=== PATIENT | female | born 1935 | race Caucasian/White ===

== ENCOUNTER 2019-12-11 14:30 | Emergency (ER) | payer MEDICARE, BC ==
[2019-12-11] MEDS ORDERED: Ondansetron 4 MG/2 ML SDV IVPUSH ONE (15:04)
[2019-12-11] MEDS ORDERED: Pantoprazole 40 MG in Sodium Chloride 0.9% 20 ML IVPUSH ONE (15:05)
--- NOTE | 2019-12-11 15:12 | EDM.PDOC ---
ED HPI GENERAL MEDICAL PROBLEM - General Chief Complaint: Abdominal Pain Stated Complaint: STOMACH PAIN AND VOMITING Time Seen by Provider: 12/11/19 15:00 Source of Information: Reports: Patient History Limitations: Reports: No Limitations - History of Present Illness INITIAL COMMENTS - FREE TEXT/NARRATIVE: This 84 year old female is admitted to the ED with a chief complaint of upper abdominal pain since yesterday with associated nausea and vomiting coffee ground type emesis. She states that the pain is sharp (5/10) without radiation. She also complains of constipation for the last three days. She denies any urinary symptoms. She denies chest pain or SOB. She denies any other symptoms. She has a history of colon cancer with partial bowel resection 20 years ago. She states that she was treated for a small bowel obstruction in [place] one year ago. Upper abdomen Pain Score (Numeric/FACES): 10 - Related Data Allergies Allergy/AdvReac Type Severity Reaction Status Date / Time codeine Allergy Respiratory Verified 12/11/19 14:46 Distress meperidine [From Demerol] Allergy Respiratory Verified 12/11/19 14:46 Distress Tetracyclines Allergy Respiratory Verified 12/11/19 14:46 Distress Home Meds: Home Meds Levothyroxine 112 mcg PO DAILY 12/11/19 [History] Omeprazole [First-Omeprazole] 1 dose PO DAILY 12/11/19 [History] Ondansetron [Zofran] 4 mg PO Q8H PRN 5 Days #15 tab 12/11/19 [Rx] Pantoprazole Sodium [Protonix] 20 mg PO DAILY 30 Days #30 tablet. 12/11/19 [Rx ] Tetrahydroz/Dext 70/Peg 400/Pv [Eye Drops] 1 drop EYEBOTH ASDIRECTED 12/11/19 [ History] amLODIPine [Norvasc] 5 mg PO DAILY 12/11/19 [History] Past Medical History HEENT History: Reports: None Cardiovascular History: Reports: Hypertension Respiratory History: Reports: None Gastrointestinal History: Reports: None Genitourinary History: Reports: None INTERVENTIONAL RADIOLOGY TECHNOLOGIST History: Reports: None Musculoskeletal History: Reports: None Neurological History: Reports: None Psychiatric History: Reports: None Endocrine/Metabolic History: Reports: None Hematologic History: Reports: None Immunologic History: Reports: None Oncologic (Cancer) History: Reports: Colon, Thyroid, Other (See Below) Other Oncologic History: eye Dermatologic History: Reports: None - Infectious Disease History Infectious Disease History: Reports: Chicken Pox, Measles, Mumps - Past Surgical History Head Surgeries/Procedures: Reports: None HEENT Surgical History: Reports: None Cardiovascular Surgical History: Reports: None Respiratory Surgical History: Reports: None GI Surgical History: Reports: None Female Surgical History: Reports: None Endocrine Surgical History: Reports: None Neurological Surgical History: Reports: None Musculoskeletal Surgical History: Reports: None Oncologic Surgical History: Reports: None Dermatological Surgical History: Reports: None Social & Family History - Family History Family Medical History: Noncontributory - Tobacco Use Smoking Status *Q: Never Smoker Second Hand Smoke Exposure: No - Caffeine Use Caffeine Use: Reports: None - Recreational Drug Use Recreational Drug Use: No ED ROS GENERAL - Review of Systems Review Of Systems: See Below Constitutional: Reports: No Symptoms HEENT: Reports: No Symptoms Respiratory: Reports: No Symptoms Cardiovascular: Reports: No Symptoms Endocrine: Reports: No Symptoms GI/Abdominal: Reports: Abdominal Pain, Constipation (for a few days.), Nausea, Vomiting (coffee grounds) : Reports: No Symptoms Musculoskeletal: Reports: No Symptoms Skin: Reports: No Symptoms Neurological: Reports: No Symptoms ED EXAM, GI/ABD - Physical Exam Exam: See Below Exam Limited By: No Limitations General Appearance: Alert, WD/WN, No Apparent Distress Throat/Mouth: Normal Inspection, Normal Oropharynx Head: Atraumatic, Normocephalic Neck: Normal Inspection, Supple Respiratory/Chest: No Respiratory Distress, Lungs Clear, Normal Breath Sounds, Chest Non-Tender Cardiovascular: Normal Peripheral Pulses, Regular Rate, Rhythm, No Edema, Systolic Murmur (systolic ejection murmur grade 2/6 best heard at the apex.) GI/Abdominal Exam: Normal Bowel Sounds, Soft, No Distention, No Abnormal Bruit, No Mass, Guarding, Tender (Tenderness over the entire upper abdomen.). No: Rigid, Rebound (Female) Exam: Deferred Rectal (Female) Exam: Normal Exam, Normal Rectal Tone, Heme - Stool, Hemorrhoids (very small external hemorrhoids) Back Exam: Normal Inspection Extremities: Normal Inspection, Normal Range of Motion, Normal Capillary Refill Neurological: Alert, Oriented (times 3), CN II-XII Intact, Normal Cognition, Normal Reflexes, No Motor/Sensory Deficits Psychiatric: Normal Affect, Normal Mood Skin Exam: Warm, Dry, Intact, Normal Color, No Rash Lymphatic: No Adenopathy Course - Vital Signs Text/Narrative:: I re-evaluated the patient at 5:30PM. She states that she is feeling much and feels like going home. Her physical exam of the abdomen reveals very little tenderness in the epigastric area. No rebound or guarding. I reviewed her CT of the abdomen and pelvis and I do not see any tamra bowel obstruction. I reviewed all of her lab studies which are unremarkable. I talked to her daughter and over he phone and discussed our plan for discharge and also went over her labs and CT scan. I told them that I will be here tomorrow from 7:00AM to 7:00PM and that if she has any other problems please don't hesitate to come in and see me. They all agreed with the discharge plan. Last Recorded V/S: Last Vital Signs Temp 96.8 F L 12/11/19 14:49 Pulse 99 12/11/19 14:49 Resp 18 12/11/19 14:49 BP 148/92 H 12/11/19 14:49 Pulse Ox 99 12/11/19 14:49 - Orders/Labs/Meds Orders: Active Orders 24 hr Category Date Time Status Sodium Chloride 0.9% [Normal Saline] 500 ml Med 12/11/19 15:15 Active IV .BOLUS Medication Orders Sodium Chloride (Normal Saline) 500 mls @ 500 mls/hr IV .BOLUS MESSI Last Admin: 12/11/19 15:28 Dose: 500 mls/hr Labs: Laboratory Tests 12/11/19 12/11/19 12/11/19 Range/Units 15:20 15:20 16:13 WBC 9.50 (4.0-11.0) K/uL RBC 4.81 (4.30-5.90) M/uL Hgb 15.5 (12.0-16.0) g/dL Hct 45.1 (36.0-46.0) % MCV 93.8 (80.0-98.0) fL MCH 32.2 H (27.0-32.0) pg MCHC 34.4 (31.0-37.0) g/dL RDW Std Deviation 44.9 (28.0-62.0) fl RDW Coeff of Noemi 13 (11.0-15.0) % Plt Count 224 (150-400) K/uL MPV 9.20 (7.40-12.00) fL Neut % (Auto) 84.1 H (48.0-80.0) % Lymph % (Auto) 9.8 L (16.0-40.0) % Gillespie % (Auto) 5.5 (0.0-15.0) % Eos % (Auto) 0.5 (0.0-7.0) % Baso % (Auto) 0.1 (0.0-1.5) % Neut # (Auto) 8.0 H (1.4-5.7) K/uL Lymph # (Auto) 0.9 (0.6-2.4) K/uL Gillespie # (Auto) 0.5 (0.0-0.8) K/uL Eos # (Auto) 0.1 (0.0-0.7) K/uL Baso # (Auto) 0.0 (0.0-0.1) K/uL Nucleated RBC % 0.0 /100WBC Nucleated RBCs # 0 K/uL Sodium 138 (136-145) mmol/L Potassium 3.7 (3.5-5.1) mmol/L Chloride 100 (98-107) mmol/L Carbon Dioxide 26.8 (21.0-32.0) mmol/L BUN 15 (7.0-18.0) mg/dL Creatinine 0.9 (0.6-1.0) mg/dL Est Cr Clr Drug Dosing 40.90 mL/min Estimated GFR (MDRD) 59.8 ml/min Glucose 117 H (74-106) mg/dL Calcium 8.8 (8.5-10.1) mg/dL Magnesium 2.1 (1.8-2.4) mg/dL Total Bilirubin 0.7 (0.2-1.0) mg/dL AST 20 (15-37) IU/L ALT 25 (14-63) IU/L Alkaline Phosphatase 89 (46-116) U/L Total Protein 7.6 (6.4-8.2) g/dL Albumin 3.9 (3.4-5.0) g/dL Globulin 3.7 (2.6-4.0) g/dL Albumin/Globulin Ratio 1.1 (0.9-1.6) Urine Color YELLOW Urine Appearance CLEAR Urine pH 6.0 (5.0-8.0) Ur Specific [place] 1.015 (1.001-1.035) Urine Protein NEGATIVE (NEGATIVE) mg/dL Urine Glucose (UA) NEGATIVE (NEGATIVE) mg/dL Urine Ketones 40 H (NEGATIVE) mg/dL Urine Occult Blood NEGATIVE (NEGATIVE) Urine Nitrite NEGATIVE (NEGATIVE) Urine Bilirubin NEGATIVE (NEGATIVE) Urine Urobilinogen 0.2 (<2.0) EU/dL Ur Leukocyte Esterase NEGATIVE (NEGATIVE) Meds: Medications Generic Name Dose Route Start Last Admin Trade Name Freq PRN Reason Stop Dose Admin Sodium Chloride 500 mls @ 500 mls/hr 12/11/19 15:15 12/11/19 15:28 Normal Saline IV 500 mls/hr .BOLUS MESSI Administration Discontinued Medications Generic Name Dose Route Start Last Admin Trade Name Freq PRN Reason Stop Dose Admin Pantoprazole Sodium 40 mg/ 20 mls @ 420 mls/hr 12/11/19 15:05 12/11/19 15:28 Sodium Chloride IVPUSH 12/11/19 15:07 420 mls/hr ONETIME ONE Administration Iopamidol 100 ml 12/11/19 16:07 12/11/19 16:08 Isovue Multipack-370 (76%) IVPUSH 12/11/19 16:08 100 ml ONETIME ONE Administration Ondansetron HCl 4 mg 12/11/19 15:04 12/11/19 15:29 Zofran IVPUSH 12/11/19 15:05 4 mg ONETIME ONE Administration Departure - Departure Time of Disposition: 17:58 Disposition: Home, Self-Care 01 Condition: Good Clinical Impression: Gastritis Qualifiers: Gastritis type: unspecified gastritis Chronicity: acute Gastritis bleeding: presence of bleeding unspecified Qualified Code(s): K29.00 - Acute gastritis without bleeding Vomiting Qualifiers: Vomiting type: unspecified Vomiting Intractability: non-intractable Nausea presence: with nausea Qualified Code(s): R11.2 - Nausea with vomiting, unspecified - Discharge Information *PRESCRIPTION DRUG MONITORING PROGRAM REVIEWED*: Yes *COPY OF PRESCRIPTION DRUG MONITORING REPORT IN PATIENT YIFAN: Yes Instructions: Gastritis, Adult, [id number], Abdominal Pain, Adult, Easy-to- Read, Nausea and Vomiting, Adult, [id number] Referrals: PCP,None [Primary Care Provider] - Forms: ED Department Discharge Additional Instructions: Take all medications as directed. Follow up with your PCP in the next two to four days. Clear liquids for the next 8 hours and advance your diet as tolerated. Rest for the next 24 hours. I will be in the ED from 7:00AM tomorrow until 7:00PM if you would like to see me otherwise, return to the ED if your condition gets worse or should you have any questions or concerns. The following information is given to patients seen in the emergency department who are being discharged to home. This information is to outline your options for follow-up care. We provide all patients seen in our emergency department with a follow-up referral. The need for follow-up, as well as the timing and circumstances, are variable depending upon the specifics of your emergency department visit. If you don't have a primary care physician on staff, we will provide you with a referral. We always advise you to contact your personal physician following an emergency department visit to inform them of the circumstance of the visit and for follow-up with them and/or the need for any referrals to a consulting specialist. The emergency department will also refer you to a specialist when appropriate. This referral assures that you have the opportunity for follow-up care with a specialist. All of these measure are taken in an effort to provide you with optimal care, which includes your follow-up. Under all circumstances we always encourage you to contact your private physician who remains a resource for coordinating your care. When calling for follow-up care, please make the office aware that this follow-up is from your recent emergency room visit. If for any reason you are refused follow-up, please contact the Emergency Department at and asked to speak to the emergency department charge nurse. Sepsis Event Note - Evaluation Sepsis Screening Result: No Definite Risk - Focused Exam Vital Signs: Vital Signs Temp Pulse Resp BP Pulse Ox 12/11/19 14:49 96.8 F L 99 18 148/92 H 99 Date Exam was Performed: 12/11/19 Time Exam was Performed: 17:51 - My Orders Last 24 Hours: My Active Orders 12/11/19 15:15 Sodium Chloride 0.9% [Normal Saline] 500 ml IV .BOLUS - Assessment/Plan Last 24 Hours: My Active Orders 12/11/19 15:15 Sodium Chloride 0.9% [Normal Saline] 500 ml IV .BOLUS
[2019-12-11] MEDS ORDERED: Sodium Chloride 0.9% 500 ML IV SCH (15:15)
[2019-12-11 15:44] LABS: CARBON DIOXIDE,CO2 26.8 mmol/L (21.0-32.0); POTASSIUM,K 3.7 mmol/L (3.5-5.1)
[2019-12-11] MEDS ORDERED: Iopamidol 755 MG/ML 200 ML Multipack Bottle IVPUSH ONE (16:07)
--- NOTE | 2019-12-11 16:37 | CT ---
CT abdomen and pelvis Technique: Multiple axial sections were obtained from above the dome of the diaphragm inferiorly through the pubic symphysis. Intravenous contrast was utilized. No oral contrast has been given. Comparison: No prior abdominal imaging is available. Findings: Visualized lung bases sows a minimal subpleural nodule measuring about 3 mm which is felt to be incidental. Multiple small low density lesions are noted within the liver. Most of these are too small to characterize by Hounsfield unit measurements but most likely represent cysts. Dominant finding within the right lobe has Hounsfield unit measurements of a cyst and measures 2.1 cm in size. Spleen appears within normal limits. Small hiatal hernia seen. Adrenal glands show no nodule. Pancreas shows no discrete abnormality. Kidneys show symmetric contrast enhancement. Lower pole of the right kidney and upper pole of the right kidney show small low density findings measuring less than 1 cm believed to represent cysts. Larger cyst is noted within the left kidney measuring 4.1 cm. Aorta shows atherosclerotic change without aneurysm. No retroperitoneal adenopathy is appreciated. Mildly dilated fluid-filled loops of small bowel are seen involving jejunum and proximal ileum. More distal portions of the ileum show diffuse bowel wall thickening which is seen into the terminal ileum. Appendix not visualized with certainty. No free fluid or inflammatory change. Surgical anastomotic sutures are noted at the rectosigmoid junction. Bone window settings were reviewed which show scattered degenerative change within the spine and within both hips. No acute osseous finding is appreciated. Impression: 1. Fluid-filled and mildly dilated bowel within jejunum and proximal ileum. Other portions of the ileum show bowel wall thickening. Findings within the mid and distal ileum are likely due to enteritis. More proximal dilated small bowel may relate to functional obstruction due to this enteritis. 2. Other findings as noted above believed to be incidental. Diagnostic code #3 This report was dictated in MDT
== END 2019-12-11 18:19 | disposition home or self-care (01) ==
LOC: MW.ED 14:30
DX: K29.00 Acute gastritis without bleeding (principal); I10 Essential (primary) hypertension; Z88.5 Allergy status to narcotic agent; Z88.1 Allergy status to other antibiotic agents; Z79.899 Other long term (current) drug therapy
CPT/HCPCS: 36415; 74177; 80053; 81003; 83735; 85025; 93005; 96361; 96374; 96375; 99284; C9113; J2405; J7040; Q9967; 99283

== ENCOUNTER 2021-01-27 23:22 | Emergency (ER) | payer MEDICARE, BC | END 2021-01-27 23:46 | disposition left against medical advice (07) | LOC: MW.ED 23:22 | DX: I10 Essential (primary) hypertension (principal); Z53.21 Procedure and treatment not carried out due to patient leaving prior to being seen by health care provider ==

== ENCOUNTER 2021-03-22 19:59 | Emergency (ER) | payer MEDICARE, BC ==
[2021-03-22] MEDS ORDERED: Sodium Chloride 0.9% 10 ML Syringe FLUSH PRN (20:15)
[2021-03-22] MEDS ORDERED: Sodium Chloride 0.9% 2.5 ML Syringe FLUSH PRN (20:15)
[2021-03-22] MEDS ORDERED: Ondansetron 4 MG/2 ML SDV IVPUSH ONE ×2 (20:39→21:41)
[2021-03-22] MEDS ORDERED: Sodium Chloride 0.9% 1,000 ML IV ONE (20:39)
--- NOTE | 2021-03-22 20:57 | EDM.PDOC ---
<Yahir Reilly - Last Filed: 03/23/21 06:00> ED HPI GENERAL MEDICAL PROBLEM - General Chief Complaint: Gastrointestinal Problem Stated Complaint: NOT FEELING WELL Time Seen by Provider: 03/22/21 20:04 - History of Present Illness INITIAL COMMENTS - FREE TEXT/NARRATIVE: Patient was signed out to me by Alley Garcia pending labs and imaging at 10 PM I did reevaluate the patient and patient continued to remain stable without any issues. Laboratory analysis was unremarkable. The radiological images were viewed by myself along with reading the report from the radiologist. CT head without contrast does not reveal any acute intracranial normality. CT abdomen pelvis with contrast does not reveal any acute findings. 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 I did discuss the results with the patient. At this time the patient reported that she was feeling better. I encouraged the patient to follow-up with her primary care physician regarding the CT findings. She is to return for any new or worsening symptoms. She was amenable discharge at this time and had no further questions DISPOSITION: The patient was discharged home in stable condition. The patient will follow up with primary care physician in 1 to 3 days CONDITION: Fair PROCEDURES: None FINAL IMPRESSION(S)/DIAGNOSES: 1. Acute epigastric abdominal pain 2. Acute viral syndrome Yahir Reilly M.D. - Related Data Allergies Allergy/AdvReac Type Severity Reaction Status Date / Time codeine Allergy Respiratory Verified 03/22/21 20:15 Distress meperidine [From Demerol] Allergy Respiratory Verified 03/22/21 20:15 Distress Tetracyclines Allergy Respiratory Verified 03/22/21 20:15 Distress Home Meds: Home Meds Levothyroxine 112 mcg PO DAILY 12/11/19 [History] Omeprazole [First-Omeprazole] 1 dose PO DAILY 12/11/19 [History] Ondansetron [Zofran] 4 mg PO Q8H PRN 5 Days #15 tab 12/11/19 [Rx] Pantoprazole Sodium [Protonix] 20 mg PO DAILY 30 Days #30 tablet. 12/11/19 [Rx] Tetrahydroz/Dext 70/Peg 400/Pv [Eye Drops] 1 drop EYEBOTH ASDIRECTED 12/11/19 [History] amLODIPine [Norvasc] 5 mg PO DAILY 12/11/19 [History] ED ROS GENERAL - Review of Systems Review Of Systems: See Below ED EXAM, GENERAL - Physical Exam Exam: See Below Departure - Departure Time of Disposition: 23:03 Disposition: Home, Self-Care 01 Condition: Fair Clinical Impression: Viral URI - Discharge Information *PRESCRIPTION DRUG MONITORING PROGRAM REVIEWED*: No *COPY OF PRESCRIPTION DRUG MONITORING REPORT IN PATIENT YIFAN: No Instructions: Viral Respiratory Infection, [id number] Referrals: Danielle Marc DO [Primary Care Provider] - Forms: ED Department Discharge Additional Instructions: Your evaluated today on an emergent basis. At this time your Covid, flu, RSV were negative. All of your labs were normal. In addition we did get a CT of your abdomen and pelvis which did reveal the hepatic cysts that we had discussed. There is also a small hiatal hernia which you do know about it. In addition there is a left adnexal cystic lesion which is likely an ovary measuring 3.3 cm which is unchanged from prior CTs. You also have a cyst on the left kidney which is increased in size from last time however this appears to be similar to your prior CTs. In addition you did have some inflammation on your mesentery which is part of your intestine which is unchanged from prior CT. I do recommend that you follow-up with your primary care physician regarding all of these findings. If you have any worsening symptoms please return to the emergency department. [facility] [address] [place] [address] [place] [address] The patient is informed of any results of their evaluation and diagnostic workup and all questions are answered. They are given discharge instructions and return precautions. The patient is stable for discharge. The patient states they understand and agree with the plan and that they will return if their symptoms get worse or if they have any new concerns. The following information is given to patients seen in the emergency department who are being discharged to home. This information is to outline your options for follow-up care. We provide all patients seen in our emergency department with a follow-up referral. The need for follow-up, as well as the timing and circumstances, are variable depending upon the specifics of your emergency department visit. If you don't have a primary care physician on staff, we will provide you with a referral. We always advise you to contact your personal physician following an emergency department visit to inform them of the circumstance of the visit and for follow-up with them and/or the need for any referrals to a consulting specialist. The emergency department will also refer you to a specialist when appropriate. This referral assures that you have the opportunity for follow-up care with a specialist. All of these measure are taken in an effort to provide you with optimal care, which includes your follow-up. Under all circumstances we always encourage you to contact your private physician who remains a resource for coordinating your care. When calling for follow-up care, please make the office aware that this follow-up is from your recent emergency room visit. If for any reason you are refused follow-up, please contact the [facility] Emergency Department at and asked to speak to the emergency department charge nurse. <Babak Garica E - Last Filed: 03/26/21 11:22> ED HPI GENERAL MEDICAL PROBLEM - General Source of Information: Reports: Patient History Limitations: Reports: No Limitations - History of Present Illness INITIAL COMMENTS - FREE TEXT/NARRATIVE: HISTORY AND PHYSICAL: History of present illness: Patient is an 85-year-old female who presents to the emergency room with complaints of body aches, dizziness and epigastric/mid abdominal pain with nausea and vomiting. She states 2 days ago she had generalized body aches and had felt dizzy with ambulation. Stating "everything just hurts". She noticed she was having a difficult time formulating her speech but was able to talk without difficulty it just took "me longer than usual". She states the symptoms improved and she is no longer having any difficulty with speech but continues to have generalized body aches. During that time of speech difficulty she never had any weakness, deficits, slurring of speech, headache or any other neurological deficits. This afternoon she started to have epigastric pain, nausea and vomiting. She states "I am pretty sure I have the flu or something". She has not had any exposure to sick contacts. No recent travel. She states that she received the [place] COVID vaccination. Patient denies any fever, chills, headache, change in vision, syncope or near syncope. Denies any chest pain, back pain, shortness of breath or cough. Denies any diarrhea, constipation or dysuria. Has not noted any blood in urine or stool. Prior to this afternoon patient had been eating and drinking appropriately. Review of systems: As per history of present illness and below otherwise all systems reviewed and negative. Past medical history: As per history of present illness and as reviewed below otherwise noncontributory. Surgical history: As per history of present illness and as reviewed below otherwise noncontributory. Social history: See social history for further information Family history: As per history of present illness and as reviewed below otherwise noncontributory. Physical exam: General: Well developed and well nourished 85-year-old female. Alert and orientated x 3. Nontoxic in appearance and in no acute distress. Vital signs are stable and have been reviewed by me. Nursing notes were reviewed. Accompanied by and daughter who are attentive to child's needs. HEENT: Atraumatic, normocephalic, pupils equal and reactive bilaterally, negative for conjunctival pallor or scleral icterus, mucous membranes moist, TMs normal bilaterally, throat clear, neck supple, nontender, trachea midline. No drooling or trismus noted. No meningeal signs. No hot potato voice noted. Lungs: Clear to auscultation bilaterally. No wheezes, rales, or rhonchi. Chest nontender. Normal work of breathing, no accessory muscles used. Heart: S1S2, regular rate and rhythm without overt murmur, gallops, or rubs. No JVD. No peripheral edema Abdomen: Soft, nondistended, mild epigastric tenderness. Normoactive bowel sounds. Negative for masses or costovertebral tenderness. Skin: Intact, warm, dry. No lesions or rashes noted. Hematologic: No petechiae or purpra. Mucosa appropriate color and normal nail bed color and refill. Extremities: Atraumatic, moves all extremities per self without difficulty or deficits, negative for cords or calf pain. Neurovascular unremarkable. Neuro: Awake, alert, oriented. Cranial nerves II through XII unremarkable. Cerebellum unremarkable. Motor and sensory unremarkable throughout. Exam nonfocal. Psychiatric: Mood and affect are appropriate. Normal thought process. Answering questions appropriately. Notes: *This patient was seen and evaluated during the 2019 SARS-CoV-2 novel coronavirus pandemic period. Community viral transmission is ongoing at time of this encounter and the emergency department is operating under pandemic response procedures. Patient is an 85-year-old female who presents to the emergency room with concerns of the flu. She states 2 days ago she started to have significant body aches throughout and had noticed approximately 24 hours of feeling like she could not get her words out. She states she was able to think clearly but felt it took longer than usual for her to speak. Family did not notice any facial drooping or change in behavior. Patient states she has not had any generalized weakness, one-sided weakness, neurological deficits, urinary or fecal incontinence, or paresthesias. Symptoms have since resolved but she continues to have body aches. Patient states she decided to come to the emergency room as she had mid/epigastric pain with nausea and vomiting. During the ER interview process she states she feels like she has the flu. We did discuss diagnostics and patient initially was adamant against a head CT, but was talked into it by her family members. She is agreeable to lab work and COVID/influenza testing. States she did have the Pfizer to dose COVID-19 vaccine. No family members that are close to her have been recently ill. My physical exam is unremarkable with the exception of some mild epigastric tenderness. She is neurologically intact. GCS 15, NIH 0. 2200: Patient signed out to Dr Reilly and will disposition patient appropriately. Diagnostics: CBC, CMP, Troponin, EKG, CXR, Head CT, abd/pelvis, Therapeutics: IV fluids, Zofran Definitive disposition and diagnosis as appropriate pending reevaluation and review of above. Abdomen Pain Score (Numeric/FACES): 8 Past Medical History HEENT History: Reports: None Cardiovascular History: Reports: Hypertension Respiratory History: Reports: None Gastrointestinal History: Reports: None Genitourinary History: Reports: None [employer] History: Reports: None Musculoskeletal History: Reports: None Neurological History: Reports: None Psychiatric History: Reports: None Endocrine/Metabolic History: Reports: None Hematologic History: Reports: None Immunologic History: Reports: None Oncologic (Cancer) History: Reports: Colon, Thyroid, Other (See Below) Other Oncologic History: eye Dermatologic History: Reports: None - Infectious Disease History Infectious Disease History: Reports: Chicken Pox, Measles, Mumps - Past Surgical History Head Surgeries/Procedures: Reports: None HEENT Surgical History: Reports: None Cardiovascular Surgical History: Reports: None Respiratory Surgical History: Reports: None GI Surgical History: Reports: None Female Surgical History: Reports: None Endocrine Surgical History: Reports: None Neurological Surgical History: Reports: None Musculoskeletal Surgical History: Reports: None Oncologic Surgical History: Reports: None Dermatological Surgical History: Reports: None Social & Family History - Family History Family Medical History: No Pertinent Family History - Caffeine Use Caffeine Use: Reports: None Course - Vital Signs Last Recorded V/S: Last Vital Signs Temp 99 F 03/22/21 20:15 Pulse 94 03/22/21 20:15 Resp 18 03/22/21 20:15 BP 146/66 H 03/22/21 20:15 Pulse Ox 96 03/22/21 20:15 - Orders/Labs/Meds Labs: Laboratory Tests 03/22/21 03/22/21 03/22/21 Range/Units 20:18 20:18 20:18 WBC 6.43 (4.0-11.0) K/uL RBC 4.50 (4.30-5.90) M/uL Hgb 14.5 (12.0-16.0) g/dL Hct 41.6 (36.0-46.0) % MCV 92.4 (80.0-98.0) fL MCH 32.2 H (27.0-32.0) pg MCHC 34.9 (31.0-37.0) g/dL RDW Std Deviation 45.1 (28.0-62.0) fl RDW Coeff of Noemi 13 (11.0-15.0) % Plt Count 202 (150-400) K/uL MPV 8.90 (7.40-12.00) fL Neut % (Auto) 77.7 (48.0-80.0) % Lymph % (Auto) 14.0 L (16.0-40.0) % [place] % (Auto) 7.0 (0.0-15.0) % Eos % (Auto) 1.1 (0.0-7.0) % Baso % (Auto) 0.2 (0.0-1.5) % Neut # (Auto) 5.0 (1.4-5.7) K/uL Lymph # (Auto) 0.9 (0.6-2.4) K/uL [place] # (Auto) 0.5 (0.0-0.8) K/uL Eos # (Auto) 0.1 (0.0-0.7) K/uL Baso # (Auto) 0.0 (0.0-0.1) K/uL Nucleated RBC % 0.0 /100WBC Nucleated RBCs # 0 K/uL Sodium 137 (136-145) mmol/L Potassium 4.2 (3.5-5.1) mmol/L Chloride 103 (98-107) mmol/L Carbon Dioxide 26.8 (21.0-32.0) mmol/L BUN 14 (7.0-18.0) mg/dL Creatinine 0.9 (0.6-1.0) mg/dL Est Cr Clr Drug Dosing 41.87 mL/min Estimated GFR (MDRD) 59.7 ml/min Glucose 113 H (74-106) mg/dL Lactic Acid (0.4-2.0) mmol/L Calcium 8.6 (8.5-10.1) mg/dL Magnesium 2.0 (1.8-2.4) mg/dL Total Bilirubin 0.4 (0.2-1.0) mg/dL AST 21 (15-37) IU/L ALT 27 (14-63) IU/L Alkaline Phosphatase 96 (46-116) U/L Troponin I < 0.050 (0.000-0.056) ng/mL Total Protein 7.3 (6.4-8.2) g/dL Albumin 3.7 (3.4-5.0) g/dL Globulin 3.6 (2.6-4.0) g/dL Albumin/Globulin Ratio 1.0 (0.9-1.6) Lipase 277 (73-393) U/L TSH, Ultra Sensitive 0.65 (0.36-3.74) uIU/mL Influenza Type A RNA (NEGATIVE) Influenza Type B RNA (NEGATIVE) SARS-CoV-2 RNA ([facility]NA) (NEGATIVE) 03/22/21 03/22/21 Range/Units 20:32 21:06 WBC (4.0-11.0) K/uL RBC (4.30-5.90) M/uL Hgb (12.0-16.0) g/dL Hct (36.0-46.0) % MCV (80.0-98.0) fL MCH (27.0-32.0) pg MCHC (31.0-37.0) g/dL RDW Std Deviation (28.0-62.0) fl RDW Coeff of Noemi (11.0-15.0) % Plt Count (150-400) K/uL MPV (7.40-12.00) fL Neut % (Auto) (48.0-80.0) % Lymph % (Auto) (16.0-40.0) % [place] % (Auto) (0.0-15.0) % Eos % (Auto) (0.0-7.0) % Baso % (Auto) (0.0-1.5) % Neut # (Auto) (1.4-5.7) K/uL Lymph # (Auto) (0.6-2.4) K/uL [place] # (Auto) (0.0-0.8) K/uL Eos # (Auto) (0.0-0.7) K/uL Baso # (Auto) (0.0-0.1) K/uL Nucleated RBC % /100WBC Nucleated RBCs # K/uL Sodium (136-145) mmol/L Potassium (3.5-5.1) mmol/L Chloride (98-107) mmol/L Carbon Dioxide (21.0-32.0) mmol/L BUN (7.0-18.0) mg/dL Creatinine (0.6-1.0) mg/dL Est Cr Clr Drug Dosing mL/min Estimated GFR (MDRD) ml/min Glucose (74-106) mg/dL Lactic Acid 1.9 (0.4-2.0) mmol/L Calcium (8.5-10.1) mg/dL Magnesium (1.8-2.4) mg/dL Total Bilirubin (0.2-1.0) mg/dL AST (15-37) IU/L ALT (14-63) IU/L Alkaline Phosphatase (46-116) U/L Troponin I (0.000-0.056) ng/mL Total Protein (6.4-8.2) g/dL Albumin (3.4-5.0) g/dL Globulin (2.6-4.0) g/dL Albumin/Globulin Ratio (0.9-1.6) Lipase (73-393) U/L TSH, Ultra Sensitive (0.36-3.74) uIU/mL Influenza Type A RNA NEGATIVE (NEGATIVE) Influenza Type B RNA NEGATIVE (NEGATIVE) SARS-CoV-2 RNA ([facility]NA) NEGATIVE (NEGATIVE) Meds: Medications Discontinued Medications Generic Name Dose Route Start Last Admin Trade Name Freq PRN Reason Stop Dose Admin Sodium Chloride 1,000 mls @ 125 mls/hr 03/22/21 20:39 03/22/21 20:44 Normal Saline IV 03/23/21 04:38 125 mls/hr STAT ONE Administration Iopamidol 100 ml 03/22/21 21:22 03/22/21 21:23 Iopamidol 755 Mg/Ml 500 Ml Multipack Bottle IVPUSH 03/22/21 21:23 100 ml ONETIME STA Administration Ondansetron HCl 4 mg 03/22/21 20:39 03/22/21 20:44 Ondansetron 4 Mg/2 Ml Sdv IVPUSH 03/22/21 20:40 4 mg ONETIME ONE Administration Ondansetron HCl 4 mg 03/22/21 21:41 03/22/21 21:49 Ondansetron 4 Mg/2 Ml Sdv IVPUSH 03/22/21 21:42 Not Given ONETIME ONE Sodium Chloride 10 ml 03/22/21 20:15 03/22/21 20:28 Sodium Chloride 0.9% 10 Ml Syringe FLUSH 10 ml ASDIRECTED PRN Administration Keep Vein Open Sodium Chloride 2.5 ml 03/22/21 20:15 03/22/21 20:28 Sodium Chloride 0.9% 2.5 Ml Syringe FLUSH 2.5 ml ASDIRECTED PRN Administration Keep Vein Open Sepsis Event Note (ED) - Evaluation Sepsis Screening Result: No Definite Risk
[2021-03-22 21:00] LABS: BLOOD UREA NITROGEN,BUN 14 mg/dL (7.0-18.0); CARBON DIOXIDE,CO2 26.8 mmol/L (21.0-32.0); CHLORIDE,CL 103 mmol/L (98-107); GLUCOSE RANDOM 113 mg/dL (74-106); POTASSIUM,K 4.2 mmol/L (3.5-5.1); SODIUM,NA 137 mmol/L (136-145)
[2021-03-22] MEDS ORDERED: Iopamidol 755 MG/ML 500 ML Multipack Bottle IVPUSH STA (21:22)
[2021-03-22 21:47] LABS: CORONAVIRUS COVID-19 NAA NEGATIVE (NEGATIVE); INFLUENZA A NAA NEGATIVE (NEGATIVE); INFLUENZA B NAA NEGATIVE (NEGATIVE)
--- NOTE | 2021-03-22 22:41 | CT ---
INDICATION: abdominal pain CT ABDOMEN AND PELVIS WITH CONTRAST TECHNIQUE: Multidetector CT imaging was performed through the abdomen and pelvis following intravenous contrast administration using 100 mL Isovue 370. Coronal and sagittal reconstructions were generated. COMPARISON: 12/11/2019 CT abdomen and pelvis. FINDINGS: Lower chest: Unchanged tiny bibasilar lung nodules. Liver: Unchanged hepatic cysts. Gallbladder and bile ducts: Status post cholecystectomy, as before. No biliary dilation identified. Pancreas: Unremarkable. Spleen: Normal. Adrenals: No nodules or masses. Kidneys, ureters, and urinary bladder: Slight increase in size of 5 centimeter cyst at the upper pole of the left kidney. 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 No hydronephrosis involving either kidney. No bladder mass or definite wall thickening. Gastrointestinal tract and mesentery: Small hiatal hernia. Normal caliber small bowel without obstruction or wall thickening. Appendix not visualized. Postoperative changes of partial resection of the distal colon, as before. Mild hazy density in the central mesenteric fat suggesting mesenteric panniculitis, similar to the prior exam. Vascular structures: Normal caliber abdominal aorta with minimal atherosclerotic changes. Peritoneum: No free air, abscess, or significant free fluid. Lymph nodes: No pathologically enlarged nodes identified. Reproductive organs: Status post hysterectomy, as before. No significant change in 3.3 centimeter left adnexal cystic lesion. Bones: Spinal degenerative changes. Mild bilateral hip DJD. IMPRESSION: 1. No acute abnormality identified. No cause for the patient`s symptoms is demonstrated. 2. Multiple nonacute findings as detailed above. KELLY MORLEY MD [facility] Dictated by Toni Morley MD @ 03/22/2021 10:38:49 PM Please note that all CT scans at this facility use dose modulation, iterative reconstruction, and/or weight-based dosing when appropriate to reduce radiation dose to as low as reasonably achievable. Dictated by: Toni Morley MD @ 03/22/2021 22:40:53 (Electronically Signed)
--- NOTE | 2021-03-22 22:43 | CT ---
INDICATION: dizzy, difficulty with speech (x 1 month) CT HEAD WITHOUT CONTRAST TECHNIQUE: Multiple axial CT images were performed through the head without intravenous contrast administration. COMPARISON: No previous studies are currently available for comparison. FINDINGS: No acute intracranial hemorrhage is identified. No extra-axial collections are evident and there is no mass effect or midline shift. There is mild diffuse age-related brain atrophy. Ventricular size and configuration are within normal limits for the patient`s age. Ruiz-white differentiation is within normal limits. There is very mild patchy hypodensity in the periventricular white matter, a nonspecific finding which most likely reflects chronic small vessel ischemic change. Osseous structures are within normal limits and no fractures are seen. Included portions of the paranasal sinuses and mastoid air cells are normally aerated. IMPRESSION: 1. No acute intracranial abnormality identified. 2. Mild age-related brain atrophy and white matter hypodensity consistent with chronic small vessel ischemic change. KELLY MORLEY MD [facility] Please note that all CT scans at this facility use dose modulation, iterative reconstruction, and/or weight-based dosing when appropriate to reduce radiation dose to as low as reasonably achievable. Dictated by: Toni Morley MD @ 03/22/2021 22:42:11 (Electronically Signed)
--- NOTE | 2021-03-23 03:44 | PCM.EKG ---
#1 Interpretation EKG Date: 03/22/21 Time: 20:48 Rhythm: NSR Rate (Beats/Min): 96 [place]: LAD-Left [place] Deviation P-Wave: Present QRS: Normal ST-T: Normal QT: Normal (Q waves Inferior and lateral leads) Comparison: No Change (12/11/19) EKG Interpretation Comments: Sinus Rhythm
== END 2021-03-22 23:16 | disposition home or self-care (01) ==
LOC: MW.ED 19:59
DX: R10.13 Epigastric pain (principal); B34.9 Viral infection, unspecified; J06.9 Acute upper respiratory infection, unspecified; Z88.5 Allergy status to narcotic agent; Z88.1 Allergy status to other antibiotic agents; Z79.899 Other long term (current) drug therapy; Z20.822 Contact with and (suspected) exposure to COVID-19
CPT/HCPCS: 0240U; 36415; 70450; 74177; 80053; 83605; 83690; 83735; 84443; 84484; 85025; 93005; 96374; 99284; J2405; J7030; Q9967

== ENCOUNTER 2022-03-19 17:04 | Emergency (ER) | payer MEDICARE, BC ==
[2022-03-19 18:06] LABS: CORONAVIRUS COVID-19 NAA NEGATIVE (NEGATIVE); INFLUENZA A NAA NEGATIVE (NEGATIVE); INFLUENZA B NAA NEGATIVE (NEGATIVE)
== END 2022-03-19 19:40 | disposition home or self-care (01) ==
LOC: MW.ED 17:04
DX: S09.90XA Unspecified injury of head, initial encounter (principal); I10 Essential (primary) hypertension; Z88.5 Allergy status to narcotic agent; Z88.8 Allergy status to other drugs, medicaments and biological substances; Z88.1 Allergy status to other antibiotic agents; Z79.899 Other long term (current) drug therapy; Z20.822 Contact with and (suspected) exposure to COVID-19; W22.09XA Striking against other stationary object, initial encounter
CPT/HCPCS: 0240U; 70450; 99284

== ENCOUNTER 2023-01-17 13:02 | Emergency (ER) | payer MEDICARE, BC ==
[2023-01-17] MEDS ORDERED: Sodium Chloride 0.9% 2.5 ML Syringe FLUSH PRN (13:50)
[2023-01-17] MEDS ORDERED: Sodium Chloride 0.9% 10 ML Syringe FLUSH PRN (13:50)
[2023-01-17] MEDS ORDERED: amLODIPine 5 MG Tab PO ONE (13:51)
[2023-01-17] MEDS ORDERED: amLODIPine 2.5 MG Tab PO ONE (13:52)
[2023-01-17 13:54] LABS: BASOPHILS PERCENT AUTO 0.3 % (0.0-1.5); EOSINOPHILS ABSOLUTE AUTO 0.1 K/uL (0.0-0.7); HEMOGLOBIN 13.9 g/dL (12.0-16.0); LYMPHOCYTES PERCENT AUTO 31.3 % (16.0-40.0); MEAN CORPUSCULAR HEMOGLOBIN 31.8 pg (27.0-32.0); MEAN CORPUSCULAR HGB CONC 33.9 g/dL (31.0-37.0); MEAN CORPUSCULAR VOLUME 93.8 fL (80.0-98.0); MONOCYTES ABSOLUTE AUTO 0.6 K/uL (0.0-0.8); NEUTROPHILS ABSOLUTE AUTO 3.7 K/uL (1.4-5.7); NEUTROPHILS PERCENT AUTO 57.4 % (48.0-80.0); NRBC ABSOLUTE 0 K/uL; PLATELET COUNT,PLT 254 K/uL (150-400); RED BLOOD CELL COUNT 4.37 M/uL (4.30-5.90); WHITE BLOOD CELL COUNT,WBC 6.46 K/uL (4.0-11.0)
[2023-01-17 14:09] LABS: ALBUMIN 3.5 g/dL (3.4-5.0); BILIRUBIN TOTAL 0.5 mg/dL (0.2-1.0); CALCIUM 8.7 mg/dL (8.5-10.1); CARBON DIOXIDE,CO2 25.9 mmol/L (21.0-32.0); CREATININE 0.9 mg/dL (0.6-1.0); EST CRCL DRUG DOSING (CG) 40.38 mL/min; POTASSIUM,K 3.8 mmol/L (3.5-5.1); PROTEIN TOTAL,TP 7.1 g/dL (6.4-8.2)
== END 2023-01-17 15:34 | disposition home or self-care (01) ==
LOC: MW.ED 13:02
DX: I10 Essential (primary) hypertension (principal); K21.9 Gastro-esophageal reflux disease without esophagitis; E03.9 Hypothyroidism, unspecified; Z88.5 Allergy status to narcotic agent; Z88.8 Allergy status to other drugs, medicaments and biological substances; Z79.899 Other long term (current) drug therapy
CPT/HCPCS: 36415; 71045; 80053; 83880; 84443; 84484; 85025; 85379; 93005; 99285; A9270; J3490; 93010; 99283

== ENCOUNTER 2023-03-25 23:15 | Emergency (ER) | payer MEDICARE, BC | END 2023-03-26 00:10 | disposition home or self-care (01) | LOC: MW.ED 23:15 | DX: F41.9 Anxiety disorder, unspecified (principal); G47.00 Insomnia, unspecified; I10 Essential (primary) hypertension; E03.9 Hypothyroidism, unspecified; K21.9 Gastro-esophageal reflux disease without esophagitis; Z88.5 Allergy status to narcotic agent; Z88.8 Allergy status to other drugs, medicaments and biological substances; Z79.899 Other long term (current) drug therapy | CPT/HCPCS: 99283 ==

== ENCOUNTER 2023-03-31 16:12 | Emergency (ER) | payer MEDICARE, BC ==
[2023-03-31 17:12] LABS: BASOPHILS PERCENT AUTO 0.2 % (0.0-1.5); EOSINOPHILS ABSOLUTE AUTO 0.1 K/uL (0.0-0.7); EOSINOPHILS PERCENT AUTO 1.5 % (0.0-7.0); HEMATOCRIT 40.1 % (36.0-46.0); HEMOGLOBIN 13.7 g/dL (12.0-16.0); LYMPHOCYTES ABSOLUTE AUTO 1.7 K/uL (0.6-2.4); LYMPHOCYTES PERCENT AUTO 28.1 % (16.0-40.0); MEAN CORPUSCULAR HEMOGLOBIN 31.3 pg (27.0-32.0); MEAN CORPUSCULAR HGB CONC 34.2 g/dL (31.0-37.0); MEAN CORPUSCULAR VOLUME 91.6 fL (80.0-98.0); MONOCYTES ABSOLUTE AUTO 0.5 K/uL (0.0-0.8); MONOCYTES PERCENT AUTO 9.2 % (0.0-15.0); NEUTROPHILS ABSOLUTE AUTO 3.6 K/uL (1.4-5.7); NRBC ABSOLUTE 0 K/uL; PLATELET COUNT,PLT 229 K/uL (150-400); RED BLOOD CELL COUNT 4.38 M/uL (4.30-5.90); WHITE BLOOD CELL COUNT,WBC 5.87 K/uL (4.0-11.0)
[2023-03-31 17:44] LABS: ALBUMIN 3.5 g/dL (3.4-5.0); BILIRUBIN TOTAL 0.6 mg/dL (0.2-1.0); CALCIUM 8.7 mg/dL (8.5-10.1); CARBON DIOXIDE,CO2 26.4 mmol/L (21.0-32.0); CREATININE 0.8 mg/dL (0.6-1.0); EST CRCL DRUG DOSING (CG) 45.42 mL/min; MAGNESIUM 2.2 mg/dL (1.8-2.4); POTASSIUM,K 4.1 mmol/L (3.5-5.1); PROTEIN TOTAL,TP 7.1 g/dL (6.4-8.2); TSH ULTRASENSITIVE 0.37 uIU/mL (0.36-3.74)
== END 2023-03-31 18:11 | disposition home or self-care (01) ==
LOC: MW.ED 16:12
DX: R51.9 Headache, unspecified (principal); C69.92 Malignant neoplasm of unspecified site of left eye; I10 Essential (primary) hypertension; E03.9 Hypothyroidism, unspecified; K21.9 Gastro-esophageal reflux disease without esophagitis; Z88.5 Allergy status to narcotic agent; Z88.1 Allergy status to other antibiotic agents; Z79.899 Other long term (current) drug therapy
CPT/HCPCS: 36415; 70450; 70450-26; 80053; 83735; 84443; 85025; 99284

== ENCOUNTER 2024-02-22 19:24 | Emergency (ER) | payer MEDICARE, BC ==
[2024-02-22] MEDS: amLODIPine 2.5 MG Tab PO ONE (21:45)
== END 2024-02-22 21:49 | disposition home or self-care (01) ==
LOC: MW.ED 19:24
DX: R51.9 Headache, unspecified (principal); I10 Essential (primary) hypertension; K21.9 Gastro-esophageal reflux disease without esophagitis; E03.9 Hypothyroidism, unspecified; Z79.899 Other long term (current) drug therapy; Z79.890 Hormone replacement therapy; Z88.5 Allergy status to narcotic agent; Z88.1 Allergy status to other antibiotic agents
CPT/HCPCS: 93010; 99283; 99284

== ENCOUNTER 2024-02-27 09:29 | Emergency (ER) | payer MEDICARE, BC ==
[2024-02-27 10:48] LABS: BASOPHILS ABSOLUTE AUTO 0.03 K/uL (0.00-0.20); BASOPHILS PERCENT AUTO 0.4 % (0.0-1.0); EOSINOPHILS ABSOLUTE AUTO 0.34 K/uL (0.00-0.45); EOSINOPHILS PERCENT AUTO 4.9 % (0.0-6.0); HEMATOCRIT 38.2 % (37.0-47.0); HEMOGLOBIN 13.2 g/dL (12.0-16.0); IMMATURE GRAN ABSOLUTE AUTO 0.04 K/uL (0.00-0.05); IMMATURE GRAN PERCENT AUTO 0.6 % (0.0-0.4); LYMPHOCYTES ABSOLUTE AUTO 1.25 K/uL (1.00-4.80); LYMPHOCYTES PERCENT AUTO 17.9 % (24.0-44.0); MEAN CORPUSCULAR HEMOGLOBIN 31.1 pg (28.0-32.0); MEAN CORPUSCULAR HGB CONC 34.6 g/dL (32.0-36.0); MEAN CORPUSCULAR VOLUME 90.1 fL (83.0-99.0); MEAN PLATELET VOLUME 8.4 fL (9.4-12.3); MONOCYTES ABSOLUTE AUTO 0.75 K/uL (0.00-0.80); MONOCYTES PERCENT AUTO 10.7 % (0.0-8.0); NEUTROPHILS ABSOLUTE AUTO 4.59 K/uL (1.80-7.70); NEUTROPHILS PERCENT AUTO 65.5 % (41.0-71.0); PLATELET COUNT,PLT 283 K/uL (150-400); RED BLOOD CELL COUNT 4.24 M/uL (4.10-5.30)
[2024-02-27 11:12] LABS: A/G RATIO 0.8 (0.9-1.6); ALANINE AMINOTRANSFERASE,ALT 19 IU/L (14-63); ALBUMIN 3.3 g/dL (3.4-5.0); ALKALINE PHOSPHATASE 99 U/L (46-116); ASPARTATE AMNIOTRANSFERASE,AST 18 IU/L (15-37); BILIRUBIN TOTAL 0.5 mg/dL (0.2-1.0); BLOOD UREA NITROGEN,BUN 10 mg/dL (7.0-18.0); CALCIUM 8.7 mg/dL (8.5-10.1); CARBON DIOXIDE,CO2 26.5 mmol/L (21.0-32.0); CHLORIDE,CL 100 mmol/L (98-107); CREATININE 0.9 mg/dL (0.6-1.0); EST CRCL DRUG DOSING (CG) 42.82 mL/min; GLUCOSE RANDOM 84 mg/dL (74-106); INR 1.02 (0.86-1.11); LIPASE 72 U/L (16-77); POTASSIUM,K 3.9 mmol/L (3.5-5.1); PROTEIN TOTAL,TP 7.4 g/dL (6.4-8.2); PTT,PARTIAL THROMBOPLSTIN TIME 28.9 SEC (23.9-30.7); SODIUM,NA 134 mmol/L (136-145)
[2024-02-27 11:21] LABS: ESTIMATED GFR 62 mL/min (>60)
[2024-02-27] MEDS: Iopamidol 755 MG/ML 500 ML Multipack Bottle IVPUSH STA (11:50)
== END 2024-02-27 13:12 | disposition home or self-care (01) ==
LOC: MW.ED 09:29
DX: J18.9 Pneumonia, unspecified organism (principal); R10.11 Right upper quadrant pain; Z75.8 Other problems related to medical facilities and other health care; I10 Essential (primary) hypertension; E03.9 Hypothyroidism, unspecified; K21.9 Gastro-esophageal reflux disease without esophagitis; Z79.899 Other long term (current) drug therapy; Z88.5 Allergy status to narcotic agent; Z88.8 Allergy status to other drugs, medicaments and biological substances
CPT/HCPCS: 36415; 74177; 80053; 83690; 84484; 85025; 85610; 85730; 93005; 99284; Q9967; 93010

== ENCOUNTER 2024-04-01 11:14 | Emergency (ER) | payer MEDICARE, BC ==
[2024-04-01] MEDS ORDERED: Sodium Chloride 0.9% 10 ML Syringe FLUSH PRN (11:26)
[2024-04-01] MEDS ORDERED: Sodium Chloride 0.9% 2.5 ML Syringe FLUSH PRN (11:26)
[2024-04-01] MEDS ORDERED: Sodium Chloride 0.9% 20 ML SDV IV PRN (11:26)
== END 2024-04-01 14:04 | disposition home or self-care (01) ==
LOC: MW.ED 11:14
DX: K59.09 Other constipation (principal); Z85.820 Personal history of malignant melanoma of skin; Z85.05 Personal history of malignant neoplasm of liver; I10 Essential (primary) hypertension; K21.9 Gastro-esophageal reflux disease without esophagitis; E03.9 Hypothyroidism, unspecified; Z79.890 Hormone replacement therapy; Z79.899 Other long term (current) drug therapy; Z88.1 Allergy status to other antibiotic agents; Z88.8 Allergy status to other drugs, medicaments and biological substances; Z88.5 Allergy status to narcotic agent
CPT/HCPCS: 74018; 74018-26; 99282; 99283

== ENCOUNTER 2025-02-17 18:35 | Emergency (ER) | payer MEDICARE, BC | END 2025-02-17 18:45 | disposition left against medical advice (07) | LOC: MW.ED 18:35 | DX: Z53.21 Procedure and treatment not carried out due to patient leaving prior to being seen by health care provider (principal) ==

== ENCOUNTER 2025-02-19 17:36 | Emergency (ER) | payer MEDICARE, BC | END 2025-02-19 19:03 | LOC: MW.ED 17:36 | DX: S50.01XA Contusion of right elbow, initial encounter (principal); I10 Essential (primary) hypertension; E03.9 Hypothyroidism, unspecified; K21.9 Gastro-esophageal reflux disease without esophagitis; Z88.5 Allergy status to narcotic agent; Z88.8 Allergy status to other drugs, medicaments and biological substances; Z79.899 Other long term (current) drug therapy; Z79.890 Hormone replacement therapy; W01.198A Fall on same level from slipping, tripping and stumbling with subsequent striking against other object, initial encounter | CPT/HCPCS: 73080-26-RT; 73080-RT; 99283; 99284 ==